=== PATIENT | male | born 1955 | race Caucasian/White ===

== ENCOUNTER 2017-04-23 09:39 | Emergency (ER) | payer OTHER ==
[~2017-04-23] VITALS: Ht 185.4 cm; Wt 107.7 kg
[~2017-04-23 09:39] MED LIST: ALPRAZOLAM0.25 MG PO; COUGH DROPS1 EACH MM; FISH OIL CONC1 EACH PO; MUCINEX600 MG PO; NYQUIL D COLD295 ML PO; PERCOCET 5/31 TABLET PO; PROZAC20 MG PO; ZOCOR20 MG PO; ZOLOFT100 M1 PO
[2017-04-23 11:23] LABS: MCH 29.1 PG (29.0-34.0); MCHC 32.8 G/DL (30.0-36.0); MCV 88.6 FL (86-99); MEAN PLAT.VOLUME 10.4 uM^3 (9.0-12.4); PLATELET COUNT 260 K/uL (156-360); RBC DIS.WIDTH-CV 13.7 % (11.8-14.6); RBC DIS.WIDTH-SD 44.6 % (39-53); RED BLOOD COUNT 5.19 M/uL (4.00-5.50); WHITE BLOOD COUNT 9.9 K/uL (4.1-10.2)
[2017-04-23 11:34] LABS: CHLORIDE 105 mEq/L (99-109); SODIUM 143 mEq/L (136-147)
[2017-04-23 11:36] LABS: GLUCOSE 142 mg/dL (70-99)
[2017-04-23 11:38] LABS: ANION GAP 11 MEQ/L (2-14); TOTAL BILIRUBIN 0.4 mg/dL (0.0-1.0)
[2017-04-23 11:40] LABS: ALKALINE PHOSPHATASE 50 IU/L (3-129); GFR ESTIMATE (CALCULATED) > 59 mL/min/
[2017-04-23 11:41] LABS: UREA NITROGEN (BUN) 26 mg/dL (9-23)
[2017-04-23 11:43] LABS: LIPASE 17 U/L (1.0-51.0)
[2017-04-23] MEDS ORDERED: ATORVASTATIN CA40 MG PO (12:54)
[2017-04-23] MEDS ORDERED: SERTRALINE HCL50 MG PO (12:54)
[2017-04-23] MEDS ORDERED: AMLODIPINE BES2.5 MG PO (12:55)
[2017-04-23 13:07] LABS: ADD MIUA? YES; BILIRUBIN NEGATIVE; BLOOD NEGATIVE; COLOR YELLOW ((YELLOW)); GLUCOSE (STRIP) NEGATIVE; KETONES 5; LEUKOCYTES NEGATIVE; NITRITE NEGATIVE; PROTEIN (STRIP) 30; SPECIFIC GRAVITY 1.019 (1.000-1.030); UROBILINOGEN 0.2 MG/DL (0.2-1.0)
[2017-04-23 13:18] LABS: BACTERIA RARE /HPF; CALCIUM OXALATE CRYSTALS 1+ /HPF; EPITHELIAL CELLS NONE SEEN /HPF; HYALINE CASTS 0-5 /LPF; MUCUS 1+ /LPF; RED BLOOD CELLS 0-5 /HPF (0-5); UCUL ADDED? NO; WHITE BLOOD CELLS 0-5 /HPF (0-5)
[2017-04-23] MEDS ORDERED: ZOFRAN4 MG PO (14:06)
[2017-04-23 14:19] VITALS: BP 140/80
== END 2017-04-23 14:20 | disposition home or self-care (01) ==
LOC: EME 09:39
DX: R11.2 Nausea with vomiting, unspecified (principal); R10.9 Unspecified abdominal pain; I10 Essential (primary) hypertension; E78.5 Hyperlipidemia, unspecified; F17.200 Nicotine dependence, unspecified, uncomplicated
CPT/HCPCS: 80053; 81003; 83690; 85027; 99281; 99284; J2405; J7030

== ENCOUNTER 2017-07-10 15:34 | Emergency (ER) | payer OTHER ==
[~2017-07-10] VITALS: Ht 185.4 cm; Wt 110.3 kg
[~2017-07-10 15:34] MED LIST changes: +AMLODIPINE BES2.5 MG PO; +ATORVASTATIN CA40 MG PO; +SERTRALINE HCL50 MG PO; +ZOFRAN4 MG PO
[2017-07-10 16:17] LABS: HEMATOCRIT 41.4 % (38.0-50.0); MCH 29.1 PG (29.0-34.0); MCHC 33.3 G/DL (30.0-36.0); MCV 87.2 FL (86-99); MEAN PLAT.VOLUME 10.4 uM^3 (9.0-12.4); PLATELET COUNT 243 K/uL (156-360); RBC DIS.WIDTH-CV 13.3 % (11.8-14.6); RBC DIS.WIDTH-SD 42.6 % (39-53); RED BLOOD COUNT 4.75 M/uL (4.00-5.50); WHITE BLOOD COUNT 10.2 K/uL (4.1-10.2)
[2017-07-10 16:31] LABS: CHLORIDE 108 mEq/L (99-109)
[2017-07-10 16:32] LABS: POTASSIUM 3.4 mEq/L (3.7-5.4); SODIUM 141 mEq/L (136-147)
[2017-07-10 16:34] LABS: GLUCOSE 128 mg/dL (70-99)
[2017-07-10 16:35] LABS: ANION GAP 8 MEQ/L (2-14)
[2017-07-10 16:36] LABS: TOTAL BILIRUBIN 0.3 mg/dL (0.0-1.0)
[2017-07-10 16:37] LABS: ALKALINE PHOSPHATASE 54 IU/L (3-129); GFR ESTIMATE (CALCULATED) > 59 mL/min/
[2017-07-10 16:39] LABS: UREA NITROGEN (BUN) 22 mg/dL (9-23)
[2017-07-10] MEDS ORDERED: ANTIVERT25 MG PO (18:28)
[2017-07-10] MEDS ORDERED: ZOFRAN ODT4 MG PO (18:28)
[2017-07-10] MEDS ORDERED: PHENERGAN25 MG PR (18:28)
[2017-07-10 18:43] VITALS: BP 157/74
== END 2017-07-10 18:46 | disposition home or self-care (01) ==
LOC: EME 15:34
PROVIDERS: Nurse Practitioner Family
DX: R42 Dizziness and giddiness (principal); R11.2 Nausea with vomiting, unspecified; E78.5 Hyperlipidemia, unspecified; I10 Essential (primary) hypertension; H91.91 Unspecified hearing loss, right ear; F17.200 Nicotine dependence, unspecified, uncomplicated
CPT/HCPCS: 70450; 80053; 85027; 99281; 99285; J2405; J7030